=== PATIENT | male | born 1985 | race Caucasian/White ===

== ENCOUNTER 2022-02-24 11:06 | Observation (INO) ==
[2022-02-24] MEDS ORDERED: XYLOCAINE 1%/SOD BICARB 20 ML VIAL INFIL ONE (11:51)
[2022-02-24] MEDS ORDERED: DIPHTHERIA/TETANUS/PERTUSSIS 0.5 ML SYR/VIAL IM ONE (11:51)
--- NOTE | 2022-02-24 11:55 | Emergency Department Note ---
History of Present Illness General Chief complaint: Knee Injury/Pain Stated complaint: KNEE LACERATION, LEFT Time Seen by Provider: 02/24/22 11:26 History of Present Illness Maximum Pain Intensity: 3 This 36-year-old male presented to the ED with his , for evaluation of his left knee. Patient was running a trail race today. He states that he was almost at the finish line and was attempting to pass some other runners. He slipped in the mud and fell, landing on his left knee. He believes it struck a rock. He states he initially did not realize that he cut his knee. He sustained a large laceration anteriorly. Bleeding was controlled with pressure. He has been ambulatory. He denies any loss of motion. No numbness or tingling. No prior history of significant left knee injury. He is unsure of his last tetanus vaccine. No other complaints. Denies striking his head. Home Medications Medication Instructions Recorded Confirmed Type lisinopril 20 mg tablet 20 mg PO DAILY #90 tab 01/29/22 Rx Allergies Allergy/AdvReac Type Severity Reaction Status Date / Time No Known Drug Allergies Allergy Unknown . Verified 11/07/21 14:06 Past Med/Surg History Medical History Benign essential hypertension Surgical History History of ankle surgery History of cholecystectomy Family History Other No pertinent family history Social History (Updated 02/24/22 @ 15:35 by Manohar Mesa PA-C) Smoking Status: Never smoker Hx Alcohol Use: No Hx Substance Use: No Preferred Language: Vietnamese Communication Ability: Effective Visual Impairment: No Limitations Hearing Ability: Normal Public Health Aides Teacher Required: No Beliefs That Will Affect Care: None marital status: Current Living Situation: Spouse current occupational status: employed current occupation: [employer] Other Information That Helps Us Care for You: No Feels Safe at Home: Yes Safety Concerns: Feels Safe At This Time Assistive Devices: None Review of Systems A total of 10 systems reviewed and were otherwise negative Physical Exam Vital Signs Vital Signs - 24 hr 02/24/22 11:23 02/24/22 14:45 02/24/22 16:16 Temperature 37.0 C Temperature Source Oral Pulse Rate 97 H Pulse Rate [Apical] Pulse Rate [Left Finger] 66 Pulse Rhythm [Apical] Pulse Strength [Apical] Respiratory Rate 20 18 Respiratory Effort / Characteristics Non-Labored Spontaneous Non-Labored Spontaneous Respiratory Depth Normal Normal Respiratory Pattern Regular Regular Blood Pressure 107/68 Blood Pressure [Right Arm] 118/76 Blood Pressure Mean 81 Blood Pressure Mean [Right Arm] 90 Blood Pressure Position [Right Arm] Sitting Pulse Oximetry 100 99 Oxygen Delivery Method Room Air Room Air Room Air Sepsis Recent Fever Within 48 Hours No Sepsis New/Unexplained Change in Mental Status N/A Sepsis Action Taken by Nursing No Action Required 02/24/22 18:00 Temperature 36 C L Temperature Source Temporal Artery Scan Pulse Rate Pulse Rate [Apical] 79 Pulse Rate [Left Finger] Pulse Rhythm [Apical] Regular Pulse Strength [Apical] Normal Respiratory Rate 20 Respiratory Effort / Characteristics Non-Labored Spontaneous Respiratory Depth Normal Respiratory Pattern Regular Blood Pressure Blood Pressure [Right Arm] 116/69 Blood Pressure Mean Blood Pressure Mean [Right Arm] 84 Blood Pressure Position [Right Arm] Lying Pulse Oximetry 98 Oxygen Delivery Method Room Air Sepsis Recent Fever Within 48 Hours Sepsis New/Unexplained Change in Mental Status Sepsis Action Taken by Nursing General: Well-developed, well-nourished, young white male, in no acute distress. Obvious discomfort. Laying on the bed. Alert and oriented. Conversive. Skin: Warm and dry with good turgor. No rashes or lesions. No ecchymosis or erythema. The patient is not diaphoretic. No abrasions. He has a large linear laceration present over the anterior aspect of his left knee. It is approximately 4 cm in length. There is visible mud and yudith within the wound. His entire leg is essentially covered in mud. Bleeding is currently controlled. There appears to be some soft tissue protruding from the wound. Musculoskeletal: Patient has intact motor function of his toes, ankle, and knee. He is able to flex and extend his knee. He is able to set his quad and perform a straight leg raise. No discomfort with palpation over the rest of the lower leg. No pain with palpation over the knee itself. Stable collateral ligaments. Normal Agapito. Neurologic: Gross sensation is intact across the left leg by soft touch. Peripheral pulses are 2+. Procedures Free Text Procedures Informed oral consent was obtained for debridement and inspection. His leg was cleansed with soap and water. The wound was cleansed a second time using Betadine and sterile gauze. A field block was performed using 10 mL 1% plain buffered lidocaine. The wound was then draped with sterile towels. Thorough inspection was performed. Patient had extensive amounts of blood, dirt, and debris within the wound. It does have some undermining that extends superiorly as well as laterally. Wound was irrigated copiously using 200 mL of Betadine diluted with saline. Additional dirt was seen within the wound that I was unable to remove, due to the depth of penetration. I do not visualize any laceration of the patellar tendon, but there is clearly dirt embedded in the peritenon. Patient did not tolerate further attempts at debridement of this area. I did not appreciate any periosteal or bone exposure. Course Administered Medications Sodium Chloride (Nss 1000ml) 1,000 mls @ 80 mls/hr IV .[id number] [place] Stop: 03/26/22 19:54 Last Admin: 02/24/22 20:48 Dose: 80 mls/hr Documented by: [id number] Ketorolac Tromethamine (Ketorolac Tromethamine 15 Mg/Ml Vial) 15 mg IV Q6H [place] Stop: 02/26/22 14:01 Last Admin: 02/24/22 20:48 Dose: 15 mg Documented by: [id number] Discontinued Medications Bupivacaine HCl (Bupivacaine 0.5 % 5 Mg/1 Ml Mpf 30ml Vial) Confirm Administered Dose 30 ml .ROUTE .STK-MED ONE Stop: 02/24/22 17:02 Last Admin: 02/24/22 17:43 Dose: 12 ml Documented by: [id number] Diphtheria/Pertussis/Tetanus Vacc (Diphtheria/Tetanus/Pertussis 0.5 Ml Syr/Vial) 0.5 ml IM .ONCE ONE Stop: 02/24/22 11:52 Last Admin: 02/24/22 12:12 Dose: 0.5 ml Documented by: [id number] Epinephrine HCl (Epinephrine Inj 1 Mg/Ml Amp) Confirm Administered Dose 1 mg .ROUTE .STK-MED ONE Stop: 02/24/22 17:02 Last Admin: 02/24/22 17:45 Dose: 0.15 mg Documented by: [id number] Cefazolin Sodium (Ancef 2000mg) 2,000 mg in 15 mls @ 3.75 mls/min IV NOW STA Stop: 02/24/22 12:56 Last Admin: 02/24/22 13:56 Dose: 3.75 mls/min Documented by: [id number] Cefazolin Sodium (Ancef 2000mg) 2,000 mg in 15 mls @ 3.75 mls/min IV ONCE ONE Stop: 02/24/22 17:13 Last Admin: 02/24/22 17:00 Dose: 3.75 mls/min Documented by: [id number] Lidocaine HCl (Xylocaine 1%/Sod Bicarb 20 Ml Vial) 20 ml INFIL NOW ONE Stop: 02/24/22 11:52 Last Admin: 02/24/22 12:51 Dose: 20 ml Documented by: [id number] Medical Decision Making Differential Diagnosis Retained foreign body, soft tissue laceration, joint penetration, fracture Medical Records Attestation: I reviewed the patient's medical records. Home Medications Current Medication List: was personally reviewed by me Laboratory Data Lab Results 02/24/22 Range/Units 13:59 SARS-CoV-2, RNA, NAAT NEGATIVE (NEGATIVE) Imaging Data My Impression: Radiographic imaging obtained today of the knee was reviewed by me and read by radiology. No evidence of fracture or air within the joint. Punctate radiopaque foreign bodies are noted. Radiologist's Impression: Knee X-Ray 02/24/22 13:42 XR knee LT 3V CLINICAL HISTORY: fall, laceration, foreign bodies COMPARISON: None FINDINGS: Alignment of the left knee is anatomic. No acute fracture is present. No joint effusion is noted. Note is made of a soft tissue defect consistent with laceration overlying the tibial tubercle. Punctate radiodensity projects anterior to the tibial tubercle. IMPRESSION: 1. No acute fracture or joint effusion of the left knee. 2. Laceration. Punctate radiodensity projects anterior to the tibial tubercle. This could reflect punctate foreign body. ACT 112: Negative or not required by law. Electronically signed by: Sam Beltre M.D. 02/24/2022 2:58 PM Prescription Drug Monitoring [place] Drug Monitoring Program reviewed and no issues identified Blood Pressure Blood Pressure Findings: Normal blood pressure MDM Narrative Patient was evaluated in room D3. Conservative care measures were discussed. Wound was irrigated as stated. Self-retaining retractors were used to further inspect the wound. Because of the extent of dirt involvement, I do think he would be better served by having this cleansed in the OR. Dr. Jack from orthopedics was consulted. He did come to the department to evaluate the patient. He agreed with further washout. Patient will be taken to the OR this evening. COVID nasal swab was obtained in anticipation of this. IV was established. Patient was given 2 g Ancef IV. Tetanus was updated using Adacel as it was out of date from 2010. Please see Dr. Nickerson note for final management. Patient remained stable while in the ED. Impression & Plan Laceration of left knee Irrigation and debridement in the operating room. Patient will be taken there this evening. Discharge Plan Visit Data Chief Complaint: Knee Injury/Pain Stated Complaint: KNEE LACERATION, LEFT ED Provider: Michel Luong ED Midlevel Provider: Manohar Mesa Discharge Problem: Laceration of left knee Patient Disposition: Admitted As Inpatient Discharge Instructions Interventions: ED Discharge Assessment Last Done: 02/24/22 16:16 Discharge Problem: Laceration of left knee Qualifiers: Encounter type: initial encounter Qualified Code(s): S81.012A - Laceration without foreign body, left knee, initial encounter
[2022-02-24] MEDS ORDERED: ceFAZolin 2000MG 2,000 MG/15 ML SYR IV STA (12:53)
--- NOTE | 2022-02-24 13:56 | History & Physical Report ---
Date of Service February 24, 2022 Assessment & Plan (1) Laceration of left knee: Plan: After evaluation of the wound by myself and Dr. Jack surgical intervention was recommended. He has scheduled for an irrigation and debridement of his left knee wound today for today. Risks and complications of the procedure were explained to the patient include but are not limited to infection, pain, bleeding, scarring, nerve or blood vessel damage, wound problems, weakness, stiffness, incomplete relief of symptoms, tendon or ligament injury, further need for repeat surgery, heart attack, stroke, . All questions were answered and informed consent was obtained. He does not need any preoperative laboratory work, EKG or medical clearance. He will be admitted to [facility] for observation and IV antibiotics. He is currently n.p.o. We will obtain a preoperative COVID test. Patient understands and agrees with the plan. Plan for discharge home tomorrow. He did get an updated Tetanus vaccine today. History of Present Illness Chief Complaint: Left knee wound Primary Care Provider: Reymundo Escamilla MD Patient is a 36-year-old male who was doing a trail run today. He states that he fell into a deep mud hole and landed on something hard on his left knee. He had immediate pain and noticed bleeding in the lower extremity. He has been able to walk. He came to the emergency room for evaluation. He had a tetanus update. He was evaluated by the emergency room physician office support assistant and found the wound to be fairly dirty so orthopedic consultation was obtained for consideration of irrigation and debridement in the operating room. After evaluating the patient we did elect to proceed with an I&D of the left knee wound. He denies any other injuries. Denies any previous problems with his left knee although he does have history of having a nondisplaced patellar fracture treated in the past although is not sure if it was his right or left knee. Allergies Allergy/AdvReac Type Severity Reaction Status Date / Time No Known Drug Allergies Allergy Unknown . Verified 11/07/21 14:06 Home Medications Medication Instructions Recorded Confirmed Type lisinopril 20 mg tablet 20 mg PO DAILY #90 tab 01/29/22 Rx Past Med/Surg History Medical History Benign essential hypertension Surgical History History of ankle surgery History of cholecystectomy Family History Other No pertinent family history Social History Smoking Status: Never smoker Hx Alcohol Use: Yes (@ 1 monthly) Hx Substance Use: No Feels Safe at Home: Yes Review of Systems Review of Systems: All systems reviewed & are unremarkable except as noted in HPI & below Physical Exam Constitutional: well developed, well nourished and healthy appearing; no acute distress ENMT: external ear and nose normal, oropharynx normal Respiratory: normal respiratory effort, lungs clear to auscultation Cardiovascular: RRR, no murmur, no edema Chest (Breasts): normal inspection/palpation of breasts Gastrointestinal (Abdomen): normal bowel sounds, soft, nontender, no hepatosplenomegaly Musculoskeletal: Exam focused on left knee: Patient has a wide open laceration to the anterior medial aspect of his left knee. Is on the proximal tibia. He is able to independently straight leg raise. There is no surrounding ecchymosis or erythema. He has no joint effusion to the left knee. No prepatellar effusion. Full range of motion of the left knee. Strength is 5/5. No distal edema. Dorsalis pedis and posterior tibial pulses 1+. Normal sensation throughout his left lower extremity except on the lateral aspect of his upper leg, mostly likely from the laceration of a skin nerve. Full hip ROM left lower extremity. Neurologic: PERRL, EOMI, accommodation nl, no face palsy, no dysarthria Results & Data Results & Data ([facility]) Vital Signs (Past 12 Hours) Vital Signs Temp Pulse Resp BP Pulse Ox 02/24/22 11:23 37.0 C 97 H 20 107/68 100 Supervising Physician Co-Signing Physician Notes I saw and examined the patient and agree with the above note. Proceed to OR today for Irrigation and debridement left knee wound.
--- NOTE | 2022-02-24 14:59 | XRay Report ---
XR knee LT 3V CLINICAL HISTORY: fall, laceration, foreign bodies COMPARISON: None FINDINGS: Alignment of the left knee is anatomic. No acute fracture is present. No joint effusion is noted. Note is made of a soft tissue defect consistent with laceration overlying the tibial tubercle . Punctate radiodensity projects anterior to the tibial tubercle. IMPRESSION: 1. No acute fracture or joint effusion of the left knee. 2. Laceration. Punctate radiodensity projects anterior to the tibial tubercle. This could reflect pun ctate foreign body. ACT 112: Negative or not required by law. Electronically signed by: Sam Beltre M.D. 02/24/2022 2:58 PM
[2022-02-24] MEDS ORDERED: fentaNYL citrate 100 MCG/2 ML VIAL ONE ×2 (16:06→17:06)
[2022-02-24] MEDS ORDERED: PROPOFOL IV EMULSION 10 MG/ML 20 ML VIAL IV ONE (16:06)
[2022-02-24] MEDS ORDERED: MIDAZOLAM HCL 1 MG/ML 2ML VIAL ONE (16:06)
--- NOTE | 2022-02-24 16:45 | Anesthesiology Consultation ---
Date of Service February 24, 2022 Assessment & Plan ASA ASA2 Proposed Anesthesia Anesthesia Type: General Risk / Benefits Reviewed With: PT / POA / Parent / Guardian, Accepts Plan and Informed Consent Obtained History Surgery Operation Date: 02/24/22 16:00 Proposed Procedures p Incision and Drainage Knee - Kurt Jack MD Height/Weight Height: 6 ft Weight: 79.1 kg Allergies Allergy/AdvReac Type Severity Reaction Status Date / Time No Known Drug Allergies Allergy Unknown . Verified 11/07/21 14:06 Medications Home Medications Medication Instructions Recorded Confirmed Last Taken lisinopril 20 mg tablet 20 mg PO DAILY #90 tab 01/29/22 Unknown NPO Date Last Intake of Fluids: 02/24/22 Time Last Intake of Fluids: 10:30 Last Intake of Fluids Comment: water Date Last Intake of Solids: 02/24/22 Time Last Intake of Solids: 06:30 Last Intake of Solids Comment: banana Past Medical History Medical History Benign essential hypertension Exercise / Class Metabolic Activity II 4-5 Yardwork/Stairs/Walk up hill Past Family History Family History Other No pertinent family history Past Surgical History Surgical History History of ankle surgery History of cholecystectomy Past Anesthesia History No Hx of Anesthesia Complications and No Family Hx of Anesthesia Complications History of PONV No Hx of PONV and No Hx of Motion Sickness Social History Smoking Status: Never smoker Hx Alcohol Use: Yes (@ 1 monthly) Hx Substance Use: No Review of Systems denies fever/cough/ colds/ chest pain/ SOB/ ZANDER denies ZANDER Physical Exam Vital Signs Last Vital Signs Temp 37.0 C 02/24/22 11:23 Pulse 66 02/24/22 14:45 Resp 18 02/24/22 14:45 BP 118/76 02/24/22 14:45 Pulse Ox 99 02/24/22 14:45 ENMT Mouth: no TMJ abnormality and no dentition abnormality Thyromental Distance: > or= 3.5 Finger Breadths Mallampati Class: II Neck neck extension not limited Respiratory normal respiratory effort; no respiratory distress Auscultation: lungs clear to auscultation bilaterally Cardiovascular Rate/Rhythm: regular rate and regular rhythm Neurologic moves all extremities Psychiatric Orientation: alert and oriented x 3
[2022-02-24] MEDS ORDERED: HYDROmorphone INJ 2 MG/ML SYR/VIAL IV PRN (16:46)
[2022-02-24] MEDS ORDERED: ATROPINE SULFATE 0.1 MG/ML 10ML SYR IV PRN (16:46)
[2022-02-24] MEDS ORDERED: ePHEDrine sulfate 50 MG/ML AMP IV PRN (16:46)
[2022-02-24] MEDS ORDERED: ONDANSETRON INJ 2 MG/ML 2 ML VIAL IV PRN ×2 (16:46→19:29)
[2022-02-24] MEDS ORDERED: fentaNYL citrate 100 MCG/2 ML VIAL IV PRN (16:46)
[2022-02-24] MEDS ORDERED: BUPIVACAINE 0.5 % 5 MG/1 ML MPF 30ML VIAL ONE (17:01)
[2022-02-24] MEDS ORDERED: EPINEPHrine INJ 1 MG/ML AMP ONE (17:01)
[2022-02-24] MEDS ORDERED: ceFAZolin 330 MG/ML 1 GM VIAL ONE (17:04)
[2022-02-24] MEDS ORDERED: ePHEDrine sulfate 50 MG/ML SYR ONE (17:04)
[2022-02-24] MEDS ORDERED: ceFAZolin 2000MG 2,000 MG/15 ML SYR IV ONE (17:10)
--- NOTE | 2022-02-24 17:53 | Post Operative Brief Note ---
Immediate Post Op Note v1 Date of Surgery February 24, 2022 Pre & Post Diagnosis Operation Date: 02/24/22 16:00 Pre-Op Diagnosis: Complex Laceration Left Leg Post-Op Diagnosis: Complex Laceration Left Leg I identified the patient and participated in the time-out.: Yes Procedure Operation Date: 02/24/22 16:00 Actual Procedures p Incision and Drainage Left Knee Complex Laceration to the Fascia(Left) - Kurt Jack MD Surgeon Kurt Jack MD Freight Elevator Erector Glenda Carter PA-C. No resident or fellow was available to assist. Estimated Blood Loss 10 Findings Consistent with Post-Op Diagnosis Anesthesia Type General Complications none Disposition Disposition: Recovery Room
--- NOTE | 2022-02-24 18:16 | Anesthesiology Progress Note ---
Date of Service February 24, 2022 Anesthesia Post Procedure Vital Signs Vital Signs: Temp Pulse Pulse Resp BP BP Pulse Ox 02/24/22 14:45 66 18 118/76 99 02/24/22 11:23 37.0 C 97 H 20 107/68 100 Pain Intensity Left Knee: Pain Intensity: 5 Transfer of Care Handoff Completed per policy Notes Mental Status: alert / awake / arousable and participated in evaluation Patient Amnestic to Procedure: Yes Nausea / Vomiting: adequately controlled Pain: adequately controlled Airway Patency, RR, SpO2: stable & adequate BP & HR: stable & adequate Hydration State: stable & adequate Anesthetic Complications: no major complications apparent and Pt Satisfied with anesthetic care
[2022-02-24] MEDS ORDERED: MAGNESIUM HYDROXIDE SUSP 30 ML UDC PO PRN (19:29)
[2022-02-24] MEDS ORDERED: METOCLOPRAMIDE HCL INJ 5 MG/ML 2 ML VIAL IV PRN (19:29)
[2022-02-24] MEDS ORDERED: TAMSULOSIN HCL 0.4 MG CAP PO PRN (19:29)
[2022-02-24] MEDS ORDERED: diphenhydrAMINE 50 MG/ML VIAL IV PRN (19:29)
[2022-02-24] MEDS ORDERED: NALOXONE HCL 0.4 MG/1 ML VIAL/CARP IV PRN (19:29)
[2022-02-24] MEDS ORDERED: HYDROCODONE/ACETAMOPHEN 5/325MG TAB PO PRN (19:29)
[2022-02-24] MEDS ORDERED: SODIUM CHLORIDE 0.9% 1000ML 1,000 ML IV SCH ×2 (19:55)
[2022-02-24] MEDS: KETOROLAC TROMETHAMINE 15 MG/ML VIAL IV SCH (20:48)
[2022-02-24] MEDS: ACETAMINOPHEN 500 MG TAB PO SCH (22:04)
[2022-02-24] MEDS: ceFAZolin 2000MG 2,000 MG/15 ML SYR IV SCH (22:05)
[2022-02-25] MEDS: KETOROLAC TROMETHAMINE 15 MG/ML VIAL IV SCH ×2 (01:51→08:37)
--- NOTE | 2022-02-25 04:30 | Operative Report (OR) ---
DATE OF SURGERY: 02/24/2022 PREOPERATIVE DIAGNOSIS: Left knee complex laceration down to the fascia. POSTOPERATIVE DIAGNOSIS: Left knee complex laceration down to the fascia. OPERATION PERFORMED: Irrigation and debridement, left knee wound laceration to the fascia. SURGEON: Kurt Jack MD. PSYCH THERAPIST: Glenda Carter PA-C. No resident or fellow was available to assist. SPECIMENS: None. COMPLICATIONS: None. IMPLANTS: None. INDICATIONS: The patient is a 36-year-old male, otherwise healthy, who was doing a trail run this morning when he stepped in a mud puddle and fell, striking his left knee on a sharp rock, resulting in a large, 5 cm laceration over the anteromedial aspect of his proximal tibia. This was a contaminated wound. He presented to the Emergency Room. X-rays were obtained demonstrating no fractures. His wound was explored in the Emergency Room and orthopedics was consulted. Operative irrigation and debridement was recommended due to the complex nature of his wound to decrease the risk of it getting infected. I had a long discussion with him about the risks and benefits of surgery, alternatives and expected outcomes After reviewing all these, he elected to proceed with surgery. All questions were answered, informed consent was signed. DESCRIPTION OF OPERATION: The patient was identified in the Emergency Room where the surgical site was marked. He was brought back to the operating room where he was placed on the operating room table, and general anesthesia was administered. All bony prominences were padded. He received another dose of Ancef in addition to the Ancef he received in the Emergency Room, which was more than 1 hour prior to incision. He was then prepped and draped in the usual sterile fashion. Prior to incision, a multidisciplinary timeout was called. All in the room were in agreement. We began by obtaining hemostasis of any superficial skin bleeders. The wound was then irrigated out with 3 liters of sterile normal saline. Any fragments of dirt and mud that were visible were removed with Adson forceps. We then explored the wound and there was a pocket that was about 3 cm in depth moving laterally over the tibial tubercle towards the proximal aspect of the lateral tibial plateau. There was another smaller cavity about 1 cm in depth on the proximal margin of the laceration. I elected to extend the incision by another 1.5 cm proximally in order to fully visualize these soft tissue cavities. We now had excellent visualization of the entirety of the wound. There was some stranding bursal fibers that although not grossly contaminated, were at risk for becoming necrotic and serving as a nidus for infection and so these were debrided with Metzenbaum scissors and a knife sharply. He had a nickel sized defect in the paratenon ovelying the tibial tubercle which did not require any suturing. Any remaining gross contamination, which was very minimal at this point, was removed with Adson forceps. We then ran another 3 liters of normal saline through the wound. The wound was then closed with 2-0 PDS sutures in the deep dermal layer. The skin was closed with 3-0 nylons in horizontal mattress fashion. Xeroform, 4 x 4's, ABDs and a compressive dressing were placed. The patient was then awoken from anesthesia and transferred to the recovery room in stable condition. POSTOPERATIVE COURSE: The patient will be discharged from the recovery room. He will be kept overnight for IV antibiotics and then discharged tomorrow. He can weightbear as tolerated. Full knee range of motion will be allowed immediately after surgery. No DVT prophylaxis is indicated for the small lower extremity surgery in an ambulatory patient without risk factors. Job ID: [id number] [facility]
[2022-02-25] MEDS: ceFAZolin 2000MG 2,000 MG/15 ML SYR IV SCH (05:46)
[2022-02-25] MEDS: ACETAMINOPHEN 500 MG TAB PO SCH (05:46)
--- NOTE | 2022-02-25 08:20 | Orthopedic Progress Note ---
Date of Service February 25, 2022 Assessment & Plan (1) Laceration of left knee: Plan: POD 1 - I&D left knee wound [place] dressing applied today. May WBAT LLE No need for chemical DVT prophylaxis. Encouraged mobility. Has SCD's. May be OOB as tolerated. Regular diet and home medications as ordered Tylenol/Advil PRN pain Will discharge on oral Keflex fro 7 days Follow up as outpatient, call tomorrow for an appointment as instructed Findings discussed with Dr. Jack. Ice and elevate as needed for pain/swelling. Discharge to home today. All questions answered, discharge instructions reviewed. Admission and Anticipated Discharge Date Admission Date: February 24, 2022 Subjective Patient doing well this morning. Minimal pain. Has been out of bed. Tolerating regular diet. No nausea, vomiting. Denies any lightheadedness or dizziness. Physical Exam Musculoskeletal: Left knee incision dressing removed, cleansed with sterile saline wipe. Minimal bloody drainage on dressings. Full ROM left knee. No left knee effusion. Able to independently SLR. Distal N/V intact. No calf tenderness, calf supple. New dressing applied. Results & Data ([facility]) Vital Signs (Past 12 Hours) Vital Signs Temp Pulse Pulse Resp BP BP Pulse Ox 02/25/22 08:15 36.6 C 65 16 113/71 100 02/25/22 04:22 64 89/52 L 90/51 L 02/25/22 03:55 36.6 C 59 L 16 92/46 L 98 02/24/22 22:40 37.1 C 59 L 16 123/63 96 02/24/22 21:25 36.9 C 64 16 103/54 L 109/65 97 02/24/22 20:20 36.7 C 66 16 123/76 97 Laboratory Results 02/24/22 Range/Units 13:59 SARS-CoV-2, RNA, NAAT NEGATIVE (NEGATIVE) Diagnostic Findings XR knee LT 3V CLINICAL HISTORY: fall, laceration, foreign bodies COMPARISON: None FINDINGS: Alignment of the left knee is anatomic. No acute fracture is present. No joint effusion is noted. Note is made of a soft tissue defect consistent with laceration overlying the tibial tubercle. Punctate radiodensity projects anterior to the tibial tubercle. IMPRESSION: 1. No acute fracture or joint effusion of the left knee. 2. Laceration. Punctate radiodensity projects anterior to the tibial tubercle. This could reflect punctate foreign body. (1) Laceration of left knee Encounter type: initial encounter Qualified Code(s): S81.012A - Laceration without foreign body, left knee, initial encounter
--- NOTE | 2022-02-25 08:33 | Discharge Summary ---
Date of Service February 25, 2022 Admission HPI Per Admitting Provider Patient is a 36-year-old male who was doing a trail run today. He states that he fell into a deep mud hole and landed on something hard on his left knee. He had immediate pain and noticed bleeding in the lower extremity. He has been able to walk. He came to the emergency room for evaluation. He had a tetanus update. He was evaluated by the emergency room physician sales support assistant and found the wound to be fairly dirty so orthopedic consultation was obtained for consideration of irrigation and debridement in the operating room. After evaluating the patient we did elect to proceed with an I&D of the left knee wound. He denies any other injuries. Denies any previous problems with his left knee although he does have history of having a nondisplaced patellar fracture treated in the past although is not sure if it was his right or left knee. Discharge Data Procedures Performed Operation Date: 02/24/22 16:00 Actual Procedures p Incision and Drainage Left Knee Wound to the Fascia(Left) - Kurt Jack MD Hospital Course (1) Laceration of left knee: Patient presented to the ED yesterday after having a fall while running a race. He sustained a left upper leg/knee laceration during the race when he fell into a deep mud puddle. While in the ED, he was seen and evaluated and a bedside Irrigation and debridement by the ER staff. Due to the depth of the wound and contamination surgical intervention was recommended. An orthopedic consultation was placed. He was seen by Dr. Jack and agreed to proceed with an irrigation and debridement of his left knee wound. He was admitted to the hospital and underwent an I&D of his left knee wound on February 24, 2022 under general anesthesia. He tolerated the procedure well without any intraoperative complications. Postoperatively he was allowed out of bed, weight-bear as tolerated on his left lower extremity. IV Ancef started in the emergency room and continued after his procedure. He tolerated regular diet. His home medications were continued for high blood pressure. Not have any overnight issues. On postoperative day 1 his dressings were changed and his incision was clean dry and intact. A waterproof dressing was applied. It was determined that he would be safe for discharge to his home. He was discharged to his home in stable conditions. Discharge instructions were reviewed. Recommended to him to call tomorrow for an appointment in 14 days for suture removal.
[2022-02-25] MEDS ORDERED: lisinopril 20 MG TAB PO SCH (09:00)
== END 2022-02-25 10:06 | disposition home or self-care (01) ==
LOC: ED 11:06 → OR 16:16 → 3N 16:16